=== PATIENT | female | born 1995 ===

== ENCOUNTER 2018-04-17 16:38 | Emergency (ER) | payer MEDICAID ==
[2018-04-17 16:49] VITALS: BP 101/62; PULSE 88; RESP 20; TEMP 98.2; O2SAT 99
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
== END 2018-04-17 19:06 | disposition home or self-care (01) ==
LOC: H.ER 16:38
DX: S09.90XA Unspecified injury of head, initial encounter (principal); S60.415A Abrasion of left ring finger, initial encounter; Y04.1XXA Assault by human bite, initial encounter; Y04.0XXA Assault by unarmed brawl or fight, initial encounter; Y92.89 Other specified places as the place of occurrence of the external cause

== ENCOUNTER 2018-09-09 18:55 | Emergency (ER) | payer MEDICAID ==
[2018-09-09 19:01] VITALS: BP 106/66; PULSE 71; RESP 18; TEMP 97.8; O2SAT 100
[2018-09-09] MEDS ORDERED: guaiFENesin 200 mg/10 ml Syrup UD PO STA (19:25)
--- NOTE | 2018-09-09 19:28 | ED PDOC ---
HPI: CCC, URI, Sore Throat Time Seen by Provider: 09/09/18 19:02 Chief Complaint (Nursing): Cough, Cold, Congestion Chief Complaint (Provider): Cough, sore throat History Per: Patient History/Exam Limitations: no limitations Onset/Duration Of Symptoms: Days (x5) Current Symptoms Are (Timing): Still Present Location Of Pain: Throat, Headache. denies: Ear(s) Sick Contacts (Context): Friend(s) Associated Symptoms: Fever (subjective), Sore Throat, Cough (dry). denies: Nausea, Vomiting Ear Symptoms: Bilateral: None Additional Complaint(s): Hiwot Roger is a 23 year old female, with no significant past medical history, who presents to the emergency department complaining of a dry cough, congestion, sore throat, headache, and night sweats onset for x5 days associated with subjective fever. Patient reports one of her friends was recently diagnosed with mono and would like be checked for it, prompting ED visit. She has been taking Ibuprofen for symptoms, last dose was last night. She denies any ear pain, shortness of breath, nausea, vomit, diarrhea, abdominal pain or recent travel. No further medical complaints. LMP was last week. PMD: None provided. Past Medical History Reviewed: Historical Data, Nursing Documentation, Vital Signs Vital Signs: Last Vital Signs Temp 97.8 F 09/09/18 18:59 Pulse 71 09/09/18 18:59 Resp 18 09/09/18 18:59 BP 106/66 09/09/18 18:59 Pulse Ox 100 09/09/18 18:59 - Medical History PMH: No Chronic Diseases - Surgical History Surgical History: No Surg Hx - Family History Family History: States: Unknown Family Hx - Home Medications Home Medications: Ambulatory Orders Medication Instructions Recorded Amoxicillin/Clavulanate [Augmentin 1 tab PO BID #14 tab 04/17/18 875 MG-125 MG] Acetaminophen [Acetaminophen 8 650 mg PO Q8 PRN #21 tablet.er 09/09/18 Hour] RX: Naproxen 500 mg PO BID PRN #20 tab 09/09/18 RX: Promethazine DM [Phenergan DM 5 ml PO Q6 PRN #120 ml 09/09/18 Syrup] - Allergies Allergies/Adverse Reactions: Allergies Allergy/AdvReac Type Severity Reaction Status Date / Time No Known Allergies Allergy Verified 09/09/18 18:58 Review of Systems ROS Statement: Except As Marked, All Systems Reviewed And Found Negative Constitutional: Positive for: Fever (subjective), Sweats ENT: Positive for: Nose Congestion, Throat Pain. Negative for: Ear Pain Respiratory: Positive for: Cough. Negative for: Shortness of Breath Gastrointestinal: Negative for: Nausea, Vomiting, Abdominal Pain, Diarrhea Neurological: Positive for: Headache Physical Exam - Reviewed Nursing Documentation Reviewed: Yes Vital Signs Reviewed: Yes - Physical Exam Comments: GENERAL APPEARANCE: Patient is awake, alert, oriented x 3, in no acute distress. Resting comfortably, on cell phone. Nontoxic appearing. SKIN: Warm, dry; (-) cyanosis. EYES: (-) conjunctival pallor. ENMT: Mucous membranes moist. Airway patent: (-) stridor. Pharynx: (-) swelling, (+) faint erythema, (-) exudate. TMs: (-) bulging and (-) erythema. Nares patent, (-) rhinorrhea. NECK: Supple, FROM (-) tenderness, (-) stiffness, (-) lymphadenopathy. CHEST AND RESPIRATORY: (-) rhonchi, (-) rales, (-) wheezes; breath sounds equal bilaterally. Respirations even and nonlabored. HEART AND CARDIOVASCULAR: (-) irregularity ABDOMEN AND GI: Soft; (-) tenderness (-) rebound (-) guarding (-) palpable splenomegaly. EXTREMITIES: (-) deformity NEURO AND PSYCH: Mental status as above. Cranial nerves grossly intact; strength symmetric. Gait: steady. Speech: clear. - Laboratory Results Urine POC: Negative - ECG O2 Sat by Pulse Oximetry: 100 (RA) Pulse Ox Interpretation: Normal Medical Decision Making Medical Decision Making: Time: 19:15 Initial Impression: Pharyngitis, cough and congestion; probable viral illness. Initial Plan: --Motrin tab 600 mg PO --Robitussin 200 mg PO --Throat culture --Infectious Mononucleosis --Influenza A B --Rapid Strep Group A Antigen --Reevaluation 2044 Rapid Strep: Negative Influenza: Negative 2054 [place]: Negative On re-evaluation, patient reports improvement of symptoms. On exam, patient remains AAOx3, in no acute distress. Lungs clear to auscultation, cardiac RRR, repeat neuro exam shows no focal findings. Vitals stable. Lab/Diagnostic results d/w the patient in great detail. Diagnosis of cough, sore throat, viral pharyngitis/URI d/w the patient. Based on history, exam and diagnostic results, plan will be for outpatient follow up. Patient instructed to follow-up with pmd / referral provided / the clinic in 1- 2 days without fail. Advised to take medication as prescribed. Return to the emergency room at any time for any new or worsening symptoms. Patient states she fully agrees with and understands discharge instructions. States that she agrees with the plan and disposition. Verbalized and repeated discharge instructions and plan. I have given the patient opportunity to ask any additional questions. Scribe Attestation: Documented by Vignesh Subramanian, acting as a scribe for Tammie Nevarez PA-C Provider Scribe Attestation: All medical record entries made by the Scribe were at my direction and personally dictated by me. I have reviewed the chart and agree that the record accurately reflects my personal performance of the history, physical exam, medical decision making, and the department course for this patient. I have also personally directed, reviewed, and agree with the discharge instructions and disposition. Disposition - Clinical Impression Clinical Impression: Viral pharyngitis, Cough, Body aches - Patient ED Disposition Is Patient to be Admitted: No Counseled Patient/Family Regarding: Studies Performed, Diagnosis, Need For Followup, Rx Given - Disposition Referrals: Evelio Burleson MD [Staff Provider] - [facility] [Outside] Disposition: Routine/Home Disposition Time: 20:55 Condition: STABLE Additional Instructions: The emergency medical care you received today was directed at your acute symptoms. If you were prescribed any medication, please fill it and take as directed. It may take several days for your symptoms to resolve. Return to the Emergency Department if your symptoms worsen, do not improve, or if you have any other problems. Please contact your doctor in 2 days for re-evaluation and follow up / or call one of the physicians/clinics you have been referred to that are listed on the Patient Visit Information form that is included in your discharge packet. Bring any paperwork you were given at discharge with you along with any medications you are taking to your follow up visit. Our treatment cannot replace ongoing medical care by a primary care provider (PCP) outside of the emergency department. Prescriptions: Acetaminophen [Acetaminophen 8 Hour] 650 mg PO Q8 PRN #21 tablet.er PRN Reason: Fever >100.4 F RX: Naproxen 500 mg PO BID PRN #20 tab PRN Reason: Pain, Moderate (4-7) RX: Promethazine DM [Phenergan DM Syrup] 5 ml PO Q6 PRN #120 ml PRN Reason: Cough Instructions: Viral Pharyngitis, Cough in Adults, Sore Throat in Adults, Cough, Runny Nose, and the Common Cold Forms: [employer] (Cambodian) Print Language: SAUDI ARABIAN - POA Present On Arrival: None Results - Lab Results Lab Results: 09/09/18 09/09/18 09/09/18 20:12 20:12 20:12 Infectious [place] Assay Negative Influenza Typ A,B (EIA) Negative for flu a/b Grp A Beta Strep Ag Negative
[2018-09-09] MEDS ORDERED: guaiFENesin 100 mg/5 ml Syrup UD ONE (19:42)
== END 2018-09-09 21:03 | disposition home or self-care (01) ==
LOC: H.ER 18:55
DX: J02.9 Acute pharyngitis, unspecified (principal); R05 Cough; M79.18 Myalgia, other site

== ENCOUNTER 2019-04-12 18:41 | Emergency (ER) | payer MEDICAID ==
[2019-04-12 20:16] LABS: BASO # 0.1 K/uL (0.0-0.2); BASO % 1.2 % (0.0-2.0); EOS # 0.2 K/uL (0.0-0.7); EOS % 2.3 % (0.0-4.0); HEMOGLOBIN 12.8 g/dL (12.0-16.0); LYMPH # 2.3 K/uL (1.0-4.3); LYMPH % 35.9 % (20.0-40.0); MEAN CELL VOLUME 92.1 fl (81.0-99.0); MEAN CORPUSCULAR HEMOGLOBIN 30.9 pg (27.0-31.0); MEAN CORPUSCULAR HGB CONC 33.6 g/dL (33.0-37.0); MEAN PLATELET VOLUME 8.6 fl (7.2-11.7); MONO # 0.6 K/uL (0.0-0.8); MONO % 8.6 % (0.0-10.0); NEUT # 3.4 K/uL (1.8-7.0); NRBC % 0.1 % (0.0-0.0); RBC 4.15 Mil/uL (3.80-5.20); RED CELL DISTRIBUTION WIDTH 13.8 % (11.5-14.5); WHITE BLOOD COUNT 6.5 K/uL (4.8-10.8)
[2019-04-12 20:23] LABS: SQUAMOUS EPITHIAL 1 /hpf (0-5); URINE BILIRUBIN NEGATIVE (NEGATIVE); URINE BLOOD NEGATIVE (NEGATIVE); URINE CLARITY CLEAR (Clear); URINE COLOR STRAW (YELLOW); URINE GLUCOSE (UA) NEG (NEGATIVE); URINE LEUKOCYTE ESTERASE NEG Leu/uL (Negative); URINE PROTEIN 30 mg/dL (NEGATIVE); URINE UROBILINOGEN 0.2-1.0 mg/dL (0.2-1.0)
[2019-04-12 20:36] LABS: BLOOD UREA NITROGEN 12 mg/dl (7-17); CALCIUM 9.3 mg/dL (8.4-10.2); GFR NON-AFRICAN AMERICAN > 60
--- NOTE | 2019-04-12 20:42 | ED PDOC ---
HPI: Abdomen Time Seen by Provider: 04/12/19 19:16 Chief Complaint (Nursing): Abdominal Pain Chief Complaint (Provider): Abdominal Pain History Per: Patient History/Exam Limitations: no limitations Onset/Duration Of Symptoms: Days (x 2) Current Symptoms Are (Timing): Still Present Location Of Pain/Discomfort: Suprapubic Quality Of Discomfort: "Pain" Additional Complaint(s): 23 year old female with no significant medical history presents to the ED for evaluation of lower abdominal pain that began yesterday. Patient reports irritation in her vaginal area and mild lower back pain as well. She states that she finished her period 3 days ago and that the pain does not feeling like menstrual cramps. Of note, patient reports that menstrual symptoms have worsened over the last few periods. Patient denies abnormal discharge, sexual activity, vomiting and diarrhea. PMD: none provided Abnormal Vaginal Bleeding: No Past Medical History Reviewed: Historical Data, Nursing Documentation, Vital Signs Vital Signs: Last Vital Signs Temp 98.6 F 04/12/19 19:09 Pulse 71 04/12/19 19:09 Resp 18 04/12/19 19:09 BP 111/68 04/12/19 19:09 Pulse Ox 100 04/12/19 19:09 Primary Care Provider: FAMILY PROVIDER,NO - Medical History PMH: No Chronic Diseases - Surgical History Surgical History: No Surg Hx - Family History Family History: States: Unknown Family Hx - Social History Current smoker - smoking cessation education provided: No Alcohol: None Drugs: Denies - Home Medications Home Medications: Ambulatory Orders Medication Instructions Recorded Amoxicillin/Clavulanate [Augmentin 1 tab PO BID #14 tab 04/17/18 875 MG-125 MG] Acetaminophen [Acetaminophen 8 650 mg PO Q8 PRN #21 tablet.er 09/09/18 Hour] Naproxen 500 mg PO BID PRN #20 tab 09/09/18 Promethazine DM [Phenergan DM 5 ml PO Q6 PRN #120 ml 09/09/18 Syrup] - Allergies Allergies/Adverse Reactions: Allergies Allergy/AdvReac Type Severity Reaction Status Date / Time No Known Allergies Allergy Verified 04/12/19 19:09 Review of Systems ROS Statement: Except As Marked, All Systems Reviewed And Found Negative Gastrointestinal: Positive for: Abdominal Pain. Negative for: Nausea, Vomiting, Diarrhea Genitourinary Female: Positive for: Dysuria. Negative for: Frequency, Incontinence, Hematuria, Vaginal Discharge, Vaginal Bleeding Musculoskeletal: Positive for: Back Pain Physical Exam - Reviewed Nursing Documentation Reviewed: Yes Vital Signs Reviewed: Yes - Physical Exam Appears: Positive for: Non-toxic, No Acute Distress Head Exam: Positive for: ATRAUMATIC, NORMAL INSPECTION, NORMOCEPHALIC Skin: Positive for: Normal Color, Warm, Dry Eye Exam: Positive for: EOMI, Normal appearance, PERRL Neck: Positive for: Normal, Painless ROM, Supple Cardiovascular/Chest: Positive for: Regular Rate, Rhythm. Negative for: Murmur Respiratory: Positive for: Normal Breath Sounds. Negative for: Respiratory Distress Gastrointestinal/Abdominal: Positive for: Tenderness (suprapubic) Back: Positive for: Normal Inspection. Negative for: L CVA Tenderness, R CVA Tenderness Extremity: Positive for: Normal ROM. Negative for: Deformity Neurological/Psych: Positive for: Awake, Alert, Normal Tone, Oriented (x 3). Negative for: Motor/Sensory Deficits - Laboratory Results Result Diagrams: 04/12/19 20:08 04/12/19 20:08 Lab Results: Urine Color Straw (YELLOW) 04/12/19 20:08 Urine Clarity Clear (Clear) 04/12/19 20:08 Urine pH 6.0 (5.0-8.0) 04/12/19 20:08 Ur Specific Fay 1.012 (1.003-1.030) 04/12/19 20:08 Urine Protein 30 mg/dL (NEGATIVE) 04/12/19 20:08 Urine Glucose (UA) Neg mg/dL (NEGATIVE) 04/12/19 20:08 Urine Ketones Negative mg/dL (NEGATIVE) 04/12/19 20:08 Urine Blood Negative (NEGATIVE) 04/12/19 20:08 Urine Nitrate Negative (NEGATIVE) 04/12/19 20:08 Urine Bilirubin Negative (NEGATIVE) 04/12/19 20:08 Urine Urobilinogen 0.2-1.0 mg/dL (0.2-1.0) 04/12/19 20:08 Ur Leukocyte Esterase Neg Ilsa/uL (Negative) 04/12/19 20:08 Urine Microscopic WBC < 1 /hpf (0-5) 04/12/19 20:08 Ur Squamous Epith Cells 1 /hpf (0-5) 04/12/19 20:08 - ECG O2 Sat by Pulse Oximetry: 100 (RA) Pulse Ox Interpretation: Normal Medical Decision Making Medical Decision Makin:41 Impression: abdominal pain and dysuria Differential diagnoses include but are not limited to: UTI, ruptured cyst, ovarian torsion, fibroids Initial Plan: --Urine dip --Urine preg --CBC --BMP --Toradol 15 mg IM --Pelvic US 21:20 US Findings Uterus Measures 6.7 x 3.2 x 3.3 cm. Normal in size and appearance. No fibroid or other mass lesion seen. Endometrium Measures 8 mm in diameter. Unremarkable. Right ovary Measures 2.8 x 2.3 x 2.2 cm. No solid mass. Normal flow. Follicles. Left ovary Measures 1.9 x 1 x 2.5 cm. No solid mass. Normal flow. Free fluid No significant free fluid noted. Other Findings None. Impression Right ovarian follicles. Otherwise the study is unremarkable. Scribe Attestation: Documented by Silvia Deleon, acting as a scribe for Edward Ha MD. Provider Scribe Attestation: All medical record entries made by the Scribe were at my direction and personally dictated by me. I have reviewed the chart and agree that the record accurately reflects my personal performance of the history, physical exam, medical decision making, and the department course for this patient. I have also personally directed, reviewed, and agree with the discharge instructions and disposition. Disposition - Clinical Impression Clinical Impression: Abdominal pain in female - Patient ED Disposition Is Patient to be Admitted: No Doctor Will See Patient In The: Office Counseled Patient/Family Regarding: Studies Performed, Diagnosis, Need For Followup - Disposition Referrals: [facility] [Outside] Disposition: Routine/Home Disposition Time: 22:17 Condition: GOOD Additional Instructions: HARLEY WOODS, thank you for letting us take care of you today. Your provider was Edward Ha MD and you were treated for ABD PAIN. The emergency medical care you received today was directed at your acute symptoms. If you were prescribed any medication, please fill it and take as directed. It may take several days for your symptoms to resolve. Return to the Emergency Department if your symptoms worsen, do not improve, or if you have any other problems. Please contact your doctor or call one of the physicians/clinics you have been referred to that are listed on the Patient Visit Information form that is included in your discharge packet. Bring any paperwork you were given at discharge with you along with any medications you are taking to your follow up visit. Our treatment cannot replace ongoing medical care by a primary care provider outside of the emergency department. Thank you for allowing the [facility] team to be part of your care today. If you had an X-Ray or CT scan: A Radiologist will review the ED reading if any change in treatment is needed we will contact you. If you had a blood, urine, or wound culture: It will take several days for the results, if any change in treatment is needed we will contact you. Instructions: Acute Pelvic Pain
[2019-04-12 22:54] VITALS: BP 141/77; PULSE 81; RESP 16; TEMP 98.7; O2SAT 95
--- NOTE | 2019-04-13 10:37 | US ---
Date of service: 04/12/2019 HISTORY: suprapubic pain COMPARISON: None available. TECHNIQUE: Transabdominal only FINDINGS: UTERUS: Measures 6.7 x 3.2 x 3.3 cm. Normal in size and appearance. No fibroid or other mass lesion seen. ENDOMETRIUM: Measures 8 mm in diameter. Unremarkable. CERVIX: No cervical abnormality identified. RIGHT OVARY: Measures 2.8 x 2.3 x 2.2 cm. No solid mass. Normal flow. LEFT OVARY: Measures 1.9 x 1.0 x 2.5 cm. No solid mass. Normal flow. FREE FLUID: No significant free fluid noted. OTHER FINDINGS: None. IMPRESSION: Unremarkable pelvic ultrasound. The preliminary findings for this examination were reported by [facility] at 9:18 p.m. on 04/12/2019. There is concurrence of this report with the preliminary findings.
== END 2019-04-12 22:45 | disposition home or self-care (01) ==
LOC: H.ER 18:41
DX: R10.2 Pelvic and perineal pain (principal)
CPT/HCPCS: 76856; 80048; 81003; 81025; 85025; 96374; 99284; J1885